=== PATIENT | male | born 1960 | race Caucasian/White ===

== ENCOUNTER 2024-08-10 04:49 | Emergency (ER) | payer BC, SELFPAY ==
[2024-08-10 04:52] VITALS: BP 158/114
[2024-08-10 05:19] VITALS: BMI 41.9
[2024-08-10 05:27] VITALS: BP 140/92
[2024-08-10 06:00] VITALS: BP 137/97
[2024-08-10 06:12] LABS: % Basophils 0.2 % (0-2); % Eosinophils 4.7 % (0-6); % Immature Granulocytes 0.6 % (0-0.5); % Lymphocytes 9.8 % (20.5-51.1); % Monocytes 9.2 % (1.7-9.3); % Neutrophils 75.5 % (42.2-75.2); Absolute Eosinophils 0.7 10^3/uL (0-0.7); Absolute Immature Granulocytes 0.1 10^3/uL (0-0.05); Absolute Lymphocytes 1.5 10^3/uL (1.2-3.4); Absolute Monocytes 1.4 10^3/uL (0.1-0.6); Absolute Neutrophils 11.5 10^3/uL (1.4-6.5); Hematocrit 54.2 % (39.0-52.0); Hemoglobin 19.3 g/dL (13.0-18.0); Mean Corp Hgb Conc. 35.6 g/dL (33.0-37.0); Mean Corpuscular Hgb 30.8 pg (27.0-31.0); Mean Corpuscular Volume 86.6 fL (80.0-94.0); Mean Platelet Volume 10.5 fL (7.4-10.4); Nucleated Red Blood Cells % 0 % (-); Platelet Count 238 10^3/uL (130-400); Red Blood Cell Count 6.26 10^6/uL (4.70-6.10); Red Cell Dist. Width 14.3 % (11.5-14.5); White Blood Cell Count 15.3 10^3/uL (4.8-10.8)
[2024-08-10 06:29] LABS: ALT (SGPT) 22 U/L (0-50); AST (SGOT) 16 U/L (17-59); Alkaline Phosphatase 97 U/L (38-126); Blood Urea Nitrogen 25 mg/dl (9-20); COVID-19 Antigen Negative (Negative); Calcium 8.8 mg/dl (8.4-10.2); Carbon Dioxide 17 mmol/L (22-30); Chloride 105 mmol/L (98-107); Estimated Creatinine Clearance 107 ml/min; Glucose 174 mg/dl (70-99); Lipase 42 U/L (23-300); Potassium 3.9 mmol/L (3.5-5.1); Sodium 136 mmol/L (135-145); Total Protein 6.7 g/dl (6.3-8.2); eGFR > 60.00
--- NOTE | 2024-08-10 06:43 | ED.GENMED ---
History of Present Illness
General
Chief Complaint: Abdominal Pain
Source: patient
Exam Limitations: none
Time Seen by Provider: 08/10/24 06:33
History of Present Illness
History of Present Illness:
See MDM
Past History
Past History
ED Past Medical History: Arrthythmia and NIDDM
ED Past Surgical History: Orthopedic
Social History
Tobacco: Non-smoker
Alcohol: None
Phy Exam
Physical Exam
Physical Exam:
See MDM
Course
Orders/Labs/Results
Orders:
Orders
08/10/24 05:53
COVID-19 Antigen Urgent
Source: Nasal Swab
Complete Blood Count/With Diff Urgent
Comprehensive Metabolic Panel Urgent
Lipase Urgent
Influenza A+B Rapid Molecular Urgent
JEN Source: Nasal Swab
Specimen Description:
08/10/24 06:42
Electrocardiogram (*1) Urgent
Reason for Study: Abdominal Pain
CT Abd/pelvis W Iv Cont Urgent
Comment:
Reason For Exam: N/V/D, LLQ pain
EKG- Treatment ONCE
STOOL [C difficile Antigen & Toxins] Urgent
JEN Source: Feces/Stool
Specimen Description:
Stool Culture Urgent
JEN Source: Feces/Stool
Specimen Description:
0.9% Sodium Chloride 1000 ml [Nss] 1,000 ml IV BOLUS
Ketorolac [Toradol] 30 mg IV NOW STA
08/10/24 08:41
LevoFLOXacin [Levaquin] 500 mg PO NOW STA
MetroNIDAZOLE [Flagyl] 500 mg PO NOW STA
Abnormal Lab Results
08/10/24
05:53
WBC 15.3 H 10^3/uL
(4.8-10.8)
RBC 6.26 H 10^6/uL
(4.70-6.10)
Hgb 19.3 H g/dL
(13.0-18.0)
Hct 54.2 H %
(39.0-52.0)
MPV 10.5 H fL
(7.4-10.4)
Abs Immat Gran (auto) 0.1 H 10^3/uL
(0-0.05)
Absolute Neuts (auto) 11.5 H 10^3/uL
(1.4-6.5)
Absolute Monos (auto) 1.4 H 10^3/uL
(0.1-0.6)
Immature Gran % 0.6 H %
(0-0.5)
Neutrophils % 75.5 H %
(42.2-75.2)
Lymphocytes % 9.8 L %
(20.5-51.1)
Carbon Dioxide 17 L mmol/L
(22-30)
BUN 25 H mg/dl
(9-20)
Glucose 174 H mg/dl
(70-99)
AST 16 L U/L
(17-59)
08/10/24 05:53
08/10/24 05:53
Vital Signs
Initial and Last Documented VS:
Initial Vital Signs
Temp Pulse Resp BP Pulse Ox
97.2 F 90 24 158/114 95
08/10/24 04:52 08/10/24 04:52 08/10/24 04:52 08/10/24 04:52 08/10/24 04:52
Last Documented Vital Signs
Temp Pulse Resp BP Pulse Ox
97.2 F 90 24 151/89 97
08/10/24 04:52 08/10/24 04:52 08/10/24 04:52 08/10/24 07:17 08/10/24 07:18
MDM/Problems Addressed
Differential Diagnosis Includes:
HPI and MDM Narrative:
63-year-old male presenting for evaluation of generalized abdominal cramping and diarrhea. This has been going on for several days. His PCP placed him on antidiarrhea medicine but patient now developing left lower quadrant pain. He denies
shortness of breath or fevers. Patient does have an elevated white blood cell count which could be explained by the vomiting and diarrhea. Will order C. difficile and stool cultures. Given left lower quadrant pain, will obtain CT abdomen/pelvis.
Will provide IV fluids for clinical dehydration. at bedside worried this could be a side effect of some of his medications, specifically Mounjaro. This was recently increased. I did explain to them that it certainly could be but this should
be further discussed with the outpatient providers
Physical exam
General: Well appearing and non-toxic
HEENT: protecting airway. Dry mucous membranes
Neck: appears supple
CV: No evidence of cyanosis
Resp: No accessory muscle use
Abd: Non-distended. Mild tenderness left lower quadrant without rebound
Extremities: No deformities
Neuro: alert
Psych: Normal affect
Skin: Intact
Problems Addressed including Acute and Chronic Conditions affecting care:
1. Abdominal pain
Acuity: acute
Prognosis: stable
Details: Will obtain CT to rule out diverticulitis
2. Dehydration
Acuity: acute
Prognosis: stable
Details: Will give IV fluid
Updates
CT concerning for mild diverticulitis. Patient did give stool sample. It was sent for culture. Given the penicillin allergy, will start Levaquin and Flagyl
Differential Diagnosis (but not limited to): Viral gastroenteritis, C. difficile, diverticulitis, adverse medication reaction
Testing considered: Norovirus
Drug therapy (if applicable): OTC meds, please see d/c instruction regarding Rx drugs
Amount and/or Complexity of Data Reviewed
Clinical info obtained from: Patient
External data reviewed: N/A
Labs I independently reviewed (but not limited to): Leukocytosis
Radiology: The CT scan was personally and independently reviewed. In addition, official CT report reviewed.
Pulse Ox: not hypoxic
EKG independently reviewed: N/A
Precision Thread Grinder Operator: N/A
Critical Care: N/A
Risk of Complication:
Social Determinants of health: Good social support
Discussed with other providers: N/A
Escalation of Care includes Admit/Obs: After being observed in the Emergency Department, pt stable for discharge.
Occasional wrong word or 'sound a like' substitutions may have occurred due to the inherent limitations of voice recognition software. Read the chart carefully and recognize, using context, where substitutions have occurred.
*Critical Care Note
Total Time (30-74mins, 75-104mins- exclusive of procedures): Not Applicable
ED Attending Note
-
Portions of this chart may have been created with voice recognition software.� Occasional wrong word or��sound alike� substitutions may have occurred due to the inherent limitations of voice recognition software.
Discharge Plan
Departure
Patient Disposition: Home (Routine Discharge)
Date of Disposition: 08/10/24
Time of Disposition: 08:44
Patient with high blood pressure during this ER visit?: Yes
Discharge Problem:
Diverticulitis
Instructions: Diverticulitis (DC)
Prescriptions:
New
metronidazole 500 mg Tablet
500 mg PO TID Qty: 21 0RF
levofloxacin 500 mg Tablet
500 mg PO DAILY Qty: 7 0RF
Referrals:
Andrei Wills MD [Family Provider] -
Earlene Carrion MD [Active] -
Activity Restrictions/Additional Instructions:
Please return for any worsening symptoms.
You may return at any time if you have further concerns.
Please follow up with your doctor at the first available appointment, preferably this week.
Please make an appointment to see the grain cleaner.
Thank you for choosing [facility].
Interventions
Interventions:
*Risk Screen - Suicide Last Done: 08/10/24 04:52
*General Assessment Last Done: 08/10/24 05:19
*Neglect/Abuse Screening Last Done: 08/10/24 04:52
ED- Fall Risk Assessment Last Done: 08/10/24 05:28
*ED COVID-19 Vaccine History Last Done: 08/10/24 05:19
CM-Xzfvpw-Ytmlixvnju Assessment Last Done: 08/10/24 05:19
Discharge Date and Time
Print Language: KAZAKH
[2024-08-10 07:17] VITALS: BP 151/89
[2024-08-10] MEDS: TORADOL 30 MG IV (07:45)
[2024-08-10 07:50] VITALS: BP 119/81
[2024-08-10 08:00] VITALS: BP 125/90
[2024-08-10] MEDS: NSS 1000 IV (08:16)
[2024-08-10] MEDS: FLAGYL 500 MG PO (09:09)
[2024-08-10] MEDS: LEVAQUIN 500 MG PO (09:09)
== END 2024-08-10 09:40 | disposition home or self-care (01) ==
LOC: EMR 04:49
PROVIDERS: Student in an Organized Health Care Education/Training Program; EMERGENCY PHYSICIAN Student in an Organized Health Care Education/Training Program; FAMILY PHYSICIAN Family Medicine
DX: K57.32 Diverticulitis of large intestine without perforation or abscess without bleeding (principal); E11.9 Type 2 diabetes mellitus without complications
CPT/HCPCS: 96374; 96361; 99284; 74177; 80053; 83690; 85025; 87045; 87046; 87324; 87427; 87449; 87502; 87811; 93005; Q9967

== ENCOUNTER 2024-10-17 06:20 | Day surgery (SDC) | payer BC, SELFPAY ==
[2024-10-17 07:59] LABS: Glucose - Point of Care 127 mg/dl (70-99)
== END 2024-10-17 09:42 | disposition home or self-care (01) ==
LOC: GI 06:20
PROVIDERS: ATTENDING PHYSICIAN Internal Medicine Gastroenterology
DX: D12.0 Benign neoplasm of cecum (principal); K57.30 Diverticulosis of large intestine without perforation or abscess without bleeding; Q43.8 Other specified congenital malformations of intestine; K64.8 Other hemorrhoids; Z09 Encounter for follow-up examination after completed treatment for conditions other than malignant neoplasm; Z87.19 Personal history of other diseases of the digestive system
CPT/HCPCS: 45385; 88305; 82962

== ENCOUNTER 2025-04-04 07:38 | Day surgery (SDC) | payer BC, SELFPAY ==
[2025-03-10 12:10] VITALS: BMI 45.1
[2025-03-10 12:45] LABS: Hematocrit 46.1 % (39.0-52.0); Hemoglobin 16.3 g/dL (13.0-18.0); Mean Corp Hgb Conc. 35.4 g/dL (33.0-37.0); Mean Corpuscular Volume 85.4 fL (80.0-94.0); Nucleated Red Blood Cells % 0 % (-); Platelet Count 181 10^3/uL (130-400); Red Cell Dist. Width 13.2 % (11.5-14.5)
[2025-03-10 12:48] LABS: INR 1.10; PT 14.5 Sec (11.4-14.6)
[2025-03-10 13:10] LABS: ALT (SGPT) 57 U/L (0-50); AST (SGOT) 33 U/L (17-59); Albumin 4.9 g/dl (3.5-5.0); Alkaline Phosphatase 83 U/L (38-126); Blood Urea Nitrogen 21 mg/dl (9-20); Calcium 9.8 mg/dl (8.4-10.2); Carbon Dioxide 26 mmol/L (22-30); Chloride 100 mmol/L (98-107); Estimated Creatinine Clearance > 125 ml/min; Glucose 323 mg/dl (70-99); Magnesium 1.8 mg/dl (1.6-2.3); Potassium 4.7 mmol/L (3.5-5.1); Sodium 136 mmol/L (135-145); Total Protein 7.7 g/dl (6.3-8.2); eGFR > 60.00
--- NOTE | 2025-03-24 10:03 | PTCARENOTE ---
Patients business development assistant provided medication information on 03/24- instructed business development assistant to please have patient bring updated, medication list with any hospital interactions for accuracy.
[2025-04-04] VITALS (15 sets, daily range): BP systolic 102–130; BP diastolic 65–90
[2025-04-04 08:59] LABS: Glucose - Point of Care 333 mg/dl (70-99)
[2025-04-04] MEDS: NOVOLOG vial 6 UNITS SC ×2 (09:00→13:26)
[2025-04-04] MEDS: NSS 500 IV (09:17)
[2025-04-04 10:22] LABS: Glucose - Point of Care 305 mg/dl (70-99)
[2025-04-04 11:03] LABS: ACT-LR - POC 271 Seconds (116-155)
[2025-04-04 11:21] LABS: ACT-LR - POC 260 Seconds (116-155)
--- NOTE | 2025-04-04 11:33 | ITS.CL.ABL ---
Glassware Maker - Ablation
Ablation
Procedure Report:
ELECTROPHYSIOLOGY ABLATION STUDY
DATE:: April 04, 2025�����������������������������REFERRING: Dr. Xander Torres
INDICATION: Persistent supraventricular tachycardia in the form of atrial fibrillation.� Metoprolol
HISTORY: See H and P.��As above
ANTIARRHYTHMIC DRUG: Metoprolol
PRE-PROCEDURE HALIE: No atrial thrombus on intracardiac ultrasound. Dedicated views from the right ventricular outflow tract pulmonary artery were taken to rule out thrombus.
PRESENTING RHYTHM: Atrial fibrillation
'TIME-OUT':��called and confirmed.
SEDATION/ANESTHESIA:��provided via the anesthesia department using general anesthesia (LMA).
INTRAVENOUS/ARTERIAL ACCESS:
Right femoral venous -8Fr
Left femoral venous - 8 Fr, 6 Fr
Ultrasound guidance for bilateral femoral vein access was utilized by me to obtain access with demonstration of normal anatomy
CHADS-VASC Score:
HAS-Bled Score
PROCEDURE:
1.��A decapolar CS catheter was placed within the CS for mapping and pacing.��This was also used as the reference catheter for the 3-D map.
2. The intracardiac ultrasound catheter was positioned in the RA to identify the FO for targeting of transseptal puncture, assist��in identification of the pulmonary vein ostia, monitoring pre and post ablation pulmonary vein flow velocities,
monitoring for 'bubble' formation during RF application as a sign of thermal injury,��and to monitor for pericardial effusion during mapping and ablation procedure.���Left atrial size, LV ejection fraction, and pulmonary vein flows were monitored
pre and post ablation procedure. The other valves were inspected and found to be free of significant regurgitation or stenosis.
3.��Half of the calculated heparin bolus was administered prior to the first transeptal puncture.��Transseptal puncture was performed to diagnose RA and LA pressure so that safetey of LA mapping and ablation could be further assessed, and to access
the left atrium and pulmonary veins for mapping and ablation.��This entailed advancing an 16.8 Spanish RF wire, sheath with dilator into the superior vena cava and withdrawing both (monitoring intracardiac ultrasound, fluoroscopy and tip pressure)
with the tip oriented toward the atrial septum.��The fossa ovalis was engaged (indicated by sudden displacement of the sheath tip as well as tenting of the fossa seen on intracardiac ultrasound).��Left atrial access required a pass with the
[place] needle extended.��Left atrial catheter position was confirmed by pressure monitoring (RA mean pressure 6 mm Hg and LA mean presure 14 mm Hg and after 750 cc of hydration 16 mmHg), LA saturation (99%),��as well as fluoroscopy.��The
sheath was advanced over the dilator and positioned in the left atrium.��The remainder of the calculated heparin bolus was administered and heparin was
infused to maintain ACT at 300 -350 seconds throughout the case.
4.��RA pacing was performed via the proximal decapolar poles and LA pacing was performed via the distal decapolr poles.
5. A quadrapolar catheter was first positioned at the His position for His Bundle recording which was tagged via the 3-D Navex sytem, and then passed to the RVA for RV pacing and recording.
6. The Penta spline grid replaced in each of the LIPV, LSPV, RSPV and the RIPV.��
7.��Next, a 3-D map was created using Navex.���A 3-D reconstructed CT image was compared to the 3-D Navex map to assist in anatomic interpretation, mapping and ablation.��The CT image and the NavX image were fused.
8. A total of 57 lesions were given in olive basket and flower pose. [place] and basket pose were given to each of the 4 pulmonary veins with entrance block achieved. Atrial fibrillation persisted despite pulmonary vein isolation so in flower pose
a roofline posterior wall line and floor line were given to rendered the roof posterior wall and floor of the left atrium electrically isolated. Atrial fibrillation persisted despite all these lesions and the patient was converted with 1 360 J
biphasic shock to sinus rhythm and entrance and exit block was confirmed in all 4 pulmonary veins and the posterior wall roof and floor of the left atrium. Extrastimuli and burst atrial pacing did not induce any other nonpulmonary vein triggers.
9. normal sinus node and AV node function noted.
TOTAL FLOURO TIME: 16.1 minutes 333 mGy
TOTAL RF DURATION: 0 minutes
REVERSAL OF HEPARIN: 30 mg of protamine, slow IV administration
COMPLICATIONS:
None
Intracardiac US shows no pericardial effusion post ablation.
SUMMARY:��
Complex left atrial mapping and ablation.
Isolation of all 4 pulmonary veins and the posterior wall as above.
RECOMMENDATIONS:
1. Out of bed 4 hours
2. Resume anticoagulation
3.��Continue metoprolol
4.��Consider same-day discharge
Copy to: Dr. Xander Torres
[2025-04-04 11:36] LABS: Glucose - Point of Care 297 mg/dl (70-99)
[2025-04-04 12:22] LABS: Glucose - Point of Care 319 mg/dl (70-99)
[2025-04-04 13:33] LABS: Glucose - Point of Care 295 mg/dl (70-99)
[2025-04-04 13:34] LABS: Blood Urea Nitrogen 24 mg/dl (9-20); Calcium 8.7 mg/dl (8.4-10.2); Carbon Dioxide 26 mmol/L (22-30); Chloride 104 mmol/L (98-107); Estimated Creatinine Clearance > 125 ml/min; Glucose 321 mg/dl (70-99); Potassium 4.8 mmol/L (3.5-5.1); Sodium 137 mmol/L (135-145); eGFR > 60.00
[2025-04-04 14:34] LABS: Glycohemoglobin (HgbA1c) 11.1 % (4.0-5.6)
--- NOTE | 2025-04-04 15:12 | W.PN.UPDATE ---
Update Note
Progress Note Update
Pt seen post PFA. Bilat groin sites without ht/bleeding, non tender. Post EKG NSR 70s, no acute changes. Resume eliquis tonight at usual time. Followup with Dr. Torres as scheduled. Home later today if groin sites/tele remain stable.
Pt with notable elevated glucose, both on preop labs and today, >300. He has received multiple doses regular insulin, with lowest today 260, but now back up to 319. Urgent HgbA1C 11.1%. He states that he 'ran out of refills' on the metformin and
hasn't taken it in a while, and hasn't followed up with his PCP regarding more refills or management. He was instructed to call his PCP today and ask for refills and arrange an appointment in the next 2-4 weeks. Lab results provided to pt so he may
take them to his appt. Pt understands the importance of medical compliance and diabetic management.
[2025-04-04 15:34] LABS: Glucose - Point of Care 316 mg/dl (70-99)
[2025-04-04] MEDS: NOVOLOG vial 3 UNITS SC (17:17)
[2025-04-04 17:25] LABS: Glucose - Point of Care 221 mg/dl (70-99)
== END 2025-04-04 17:25 | disposition home or self-care (01) ==
LOC: CATH 07:38
PROVIDERS: Nurse Practitioner; ATTENDING PHYSICIAN Internal Medicine Cardiovascular Disease; FAMILY PHYSICIAN Family Medicine; OTHER PHYSICIAN Internal Medicine Cardiovascular Disease
DX: I48.19 Other persistent atrial fibrillation (principal); I47.10 Supraventricular tachycardia, unspecified; E66.01 Morbid (severe) obesity due to excess calories; I10 Essential (primary) hypertension; E78.5 Hyperlipidemia, unspecified; Z68.42 Body mass index [BMI] 45.0-49.9, adult
CPT/HCPCS: 36415; 75572; 80048; 80053; 82962; 83036; 83735; 85025; 85347; 85610; 86850; 86900; 86901; 93005; 93656; 93657; C1730; C1732; C1733; C1759; C1766; C1769; C1892; C1894; Q9967